=== PATIENT | female | born 1940 | race Caucasian/White ===

== ENCOUNTER 2018-05-10 18:18 | Observation (INO) | payer OTHER, MEDICARE ==
[2018-05-10 18:24] VITALS: BMI 29.0
[2018-05-10] MEDS ORDERED: SODIUM CHLORIDE 0.9% 500 ML INFUS.BAG IV ONE (19:19)
[2018-05-10] MEDS ORDERED: ONDANSETRON 4 MG/2 ML VIAL IVPUSH ONE (19:19)
--- NOTE | 2018-05-10 19:27 | PDOC ---
History of Present Illness - General Chief Complaint: Vomiting/Diarrhea Stated Complaint: Nausea/Vomiting Time Seen by Provider: 05/10/18 18:56 - History of Present Illness Initial Comments: 77 yo f w a pmh of HTN, HLD, Hypothyroidism presents to the [facility] ER from an urgent care center with multiple episodes of vomiting and diarrhea. She was last well when she went to bed last night, but she awoke this morning at 4 am in [place] with extreme feelings of nausea, went straight to the bathroom and started vomiting and having diarrhea at the same time. She reports the vomitus was projectile and NBNB. She also reports that the diarrhea was watery in consistency and there was no blood in it. She took a zofran pill at 4 am but it did not help her nausea. She then went to urgent care who also gave her oral zofran but it did not help her nausea. She was sent to the ER from urgent care because in addition to her vomiting and diarrhea she had EKG abnormalities and was sent to see if troponin was elevated in her blood. Here in the ER she denies any chest pain, shortness of breath or difficulty breathing but endorses significant nausea and a mild headache which was gradual in onset. She reports decreased oral intake and general malaise and weakness. She denies any abdominal pain, back pain, urinary or bowel complaints. Denies any blurry vision. PCP: Tanna Ernandez Corporate Webmaster: Rodri aranda Allergies: NKA, NKDA Social Hx: Admits to minimal alcohol recreationally. Denies using cigarettes, or illicit drugs. Past History - Past Medical History Allergies/Adverse Reactions: Allergies Allergy/AdvReac Type Severity Reaction Status Date / Time No Known Allergies Allergy Verified 05/10/18 18:21 Home Medications: Ambulatory Orders Losartan Potassium 100 mg PO DAILY 06/26/14 Simvastatin [Zocor -] 40 mg PO HS 06/26/14 Levothyroxine [Synthroid -] 75 mg PO DAILY 06/27/14 Ondansetron [Zofran Odt -] 4 mg SL TID PRN #10 od.tablet 06/28/14 Hydrochlorothiazide 12.5 mg PO DAILY 05/10/18 Levothyroxine [Synthroid -] 50 mcg PO DAILY 05/10/18 Losartan Potassium 100 mg PO DAILY 05/10/18 Omeprazole 40 mg PO DAILY 05/10/18 Anemia: No Asthma: Yes (COUGHING) Cancer: No Cardiac Disorders: No CVA: No COPD: No CHF: No Dementia: No Diabetes: No GI Disorders: Yes Disorders: No HTN: Yes Hypercholesterolemia: Yes Liver Disease: No Seizures: No Thyroid Disease: Yes - Surgical History Abdominal Surgery: No Appendectomy: No Cardiac Surgery: No Cholecystectomy: No Lung Surgery: No Neurologic Surgery: No Orthopedic Surgery: No - Suicide/Smoking/Psychosocial Hx Smoking History: Never smoked Have you smoked in the past 12 months: No Information on smoking cessation initiated: No Hx Alcohol Use: No Drug/Substance Use Hx: No Substance Use Type: None Hx Substance Use Treatment: No Review of Systems - Review of Systems Comments:: CONSTITUTIONAL: Present: Generalized weakness, malaise, loss of appetite. Absent: fever, chills, diaphoresis HEENT: Absent: rhinorrhea, nasal congestion, throat pain, throat swelling, difficulty swallowing, mouth swelling, ear pain, eye pain, visual Changes CARDIOVASCULAR: Absent: chest pain, syncope, palpitations, irregular heart rate, lightheadedness , peripheral edema RESPIRATORY: Absent: cough, shortness of breath, dyspnea with exertion, orthopnea, wheezing, stridor, hemoptysis GASTROINTESTINAL: Present: Nausea, vomiting, diarrhea Absent: abdominal pain, abdominal distension, constipation, melena, hematochezia GENITOURINARY: Absent: dysuria, frequency, urgency, hesitancy, hematuria, flank pain, genital pain MUSCULOSKELETAL: Absent: myalgia, arthralgia, joint swelling SKIN: Absent: rash, itching, pallor HEMATOLOGIC/IMMUNOLOGIC: Absent: easy bleeding, easy bruising, lymphadenopathy, frequent infections ENDOCRINE: Absent: unexplained weight gain, unexplained weight loss, heat intolerance, cold intolerance NEUROLOGIC: Present: Headache Absent: focal weakness or paresthesias, dizziness, unsteady gait, seizure, mental status changes, bladder or bowel incontinence PSYCHIATRIC: Absent: anxiety, depression, suicidal or homicidal ideation, hallucinations *Physical Exam - Vital Signs Last Vital Signs Temp Pulse Resp BP Pulse Ox 97.8 F 83 18 131/75 97 05/10/18 18:21 05/10/18 18:21 05/10/18 18:21 05/10/18 18:21 05/10/18 18:21 Heart Score/ECG Review - Electrocardiogram EKG: Non specific repolarization disturbance - Age Age: >/= 65 - Risk Factors Risk Factors Heart Score: Yes Hx Hypercholesterolemia, Yes Hx Hypertension Based on the list above the patient has:: >/=3 risk factors or Hx atherosclerotic disease - ECG Intrepretation Rhythm: Regular Rhythm - [place]: Normal - QRS Increased Voltage: Precordial Leads - ST and T Non Specific ST-T Wave changes: Yes Prolonged Q-T Interval: No - ECG Impressions Normal ECG: No Non-specific ST Elevation: No Ischemic Changes: Yes Bradycardia: No ED Treatment Course - LABORATORY CBC & Chemistry Diagram: 05/10/18 20:00 05/10/18 20:00 - RADIOLOGY Radiology Studies Ordered: Category Date Time Status CHEST PA & LAT [RAD] Stat Radiology 05/10/18 19:19 Ordered Medical Decision Making - Medical Decision Making 77 yo f w a pmh of HTN, HLD, Hypothyroidism presents to the [facility] ER from an urgent care center with multiple episodes of vomiting and diarrhea and EKG abnormalities. DD includes but not limited to: ACS, gastroenteritis, food poisoning, pancreatitis Plan: Cbc, Cmp, Trop, Lipase, ua/uc, EKG, CXR, IVF-NS, Zofran, re-assess. EKG: Sinus rhythm, rate of 82, normal axis Shows inverted T waves in 1, AVL, v2,v3,v4,v5,v6. T wave flattening in 2. Possible [address] depression in leads 1, V3,V4. -Will try to find an old EKG to compare. - 1st trop negative. Cmp notable for mild hyponatremia at 132 and elevated BUN at 23 Lipase WNL UA WNL Called PCP who doesn't have an old EKG. Consulting her furniture crater to try and obtain an old EKG. Cannot get in touch with furniture crater. We will admit to Tele Obs. *DC/Admit/Observation/Transfer Diagnosis at time of Disposition: Vomiting, Diarrhea, Abnormal EKG - Discharge Dispostion Condition at time of disposition: Guarded Decision to Admit order: Yes - Referrals Referrals: Ana Carolina [Primary Care Provider] - - Patient Instructions - Post Discharge Activity
[2018-05-10] MEDS ORDERED: ONDANSETRON 4 MG/2 ML VIAL ONE (19:52)
[2018-05-10 20:10] LABS: BASO % 0.3 % (0-2.0); EOS % 0.9 % (0-4.5); HEMATOCRIT 42.5 % (32.4-45.2); HEMOGLOBIN 14.4 GM/dL (10.7-15.3); LYMPH % 7.2 % (8-40); MCH 29.6 pg (25.7-33.7); MCHC 33.9 g/dl (32.0-36.0); MEAN CELL VOLUME 87.1 fl (80-96); MEAN PLT VOLUME 8.7 fl (7.5-11.1); MONO % 3.9 % (3.8-10.2); NEUT % 87.7 % (42.8-82.8); PLATELET COUNT 275 K/MM3 (134-434); RBC 4.88 M/mm3 (3.60-5.2); RDW 13.2 % (11.6-15.6); WHITE BLOOD COUNT 9.4 K/mm3 (4.0-10.0)
--- NOTE | 2018-05-10 20:11 | PDOC ---
Attending Attestation - HPI HPI: 05/10/18 20:37 The patient is a 77 year old female with a significant PMH of hypertension, hyperlipidemia and hypothyroidism who presents to the emergency department with vomiting since earlier today. The patient reports that she woke up this morning at about 4 am with a sudden onset of vomiting. The patient reports associated diarrhea with her vomiting. She states that she experienced about 10 episodes of vomiting. The patient states that she went to urgent care by which they sent her to the ED for an abnormal EKG. The patient denies any other symptoms. She denies any abdominal pain , chest pain, fever, chills, nausea, constipation or urinary symptoms. She denies any shortness of breath, headache and dizziness. The patient denies any other complaints. Documentation prepared by Fay Pryor, acting as phlebotomist medical lab assistant for Radha Rankin MD. <Fay Pryor - Last Filed: 05/10/18 20:37> - Resident Resident Name: Adan Lisa - ED Attending Attestation I have performed the following: I have examined & evaluated the patient, The case was reviewed & discussed with the resident, I agree w/resident's findings & plan, Exceptions are as noted - Physicial Exam PE: GENERAL: Awake, alert, and fully oriented, in no acute distress HEAD: No signs of trauma EYES: PERRLA, EOMI, sclera anicteric, conjunctiva clear ENT: Auricles normal inspection, hearing grossly normal, nares patent, oropharynx clear without exudates. Dry mucosa NECK: Normal ROM, supple, no lymphadenopathy, JVD, or masses LUNGS: Breath sounds equal, clear to auscultation bilaterally. No wheezes, and no crackles HEART: Regular rate and rhythm, normal S1 and S2, no murmurs, rubs or gallops ABDOMEN: Soft, +diffuse mild tenderness, hyperactive bowel sounds. No guarding , no rebound. No masses EXTREMITIES: Normal range of motion, no edema. No clubbing or cyanosis. No cords, erythema, or tenderness NEUROLOGICAL: Cranial nerves II through XII grossly intact. Normal speech, normal gait SKIN: Warm, Dry, normal turgor, no rashes or lesions noted. - Medical Decision Making Pt with multiple episodes of vomiting and diarrhea. No known sick contacts. Found to have poss ST dep in precordial leads on urgent care EKG, sent for evaluation. ED EKG compared with prior in [place] (from 2000), shows new ST dep in precordial leads and T wave inv in I. Will obtain labs including CBC, CMP, lipase, and troponin. Will d/w PMD. <Radha Rankin - Last Filed: 05/10/18 20:42>
[2018-05-10 20:43] LABS: ALBUMIN 3.6 g/dl (3.4-5.0); ALK PHOS 64 U/L (45-117); ANION GAP -3 MMOL/L (8-16); BILIRUBIN,TOTAL 0.8 mg/dL (0.2-1); BLOOD UREA NITROGEN 23 mg/dL (7-18); CALCIUM 9.8 mg/dL (8.5-10.1); CHLORIDE 111 mmol/L (98-107); CO2 23 mmol/L (21-32); GLUCOSE,RANDOM 91 mg/dL (74-106); POTASSIUM 3.5 mmol/L (3.5-5.1); SGOT/AST 16 U/L (15-37); SGPT/ALT 29 U/L (13-61); SODIUM 132 mmol/L (136-145); TOT PROT 7.4 g/dl (6.4-8.2)
[2018-05-10 21:04] LABS: URINE APPEARANCE CLEAR; URINE BILIRUBIN NEGATIVE (<2.0 mg/dL); URINE COLOR LTYELLOW; URINE GLUCOSE (UA) NEGATIVE (NEGATIVE); URINE KETONE NEGATIVE (NEGATIVE); URINE LEUK ESTERASE NEGATIVE (NEGATIVE); URINE NITRITE NEGATIVE (NEGATIVE); URINE PROTEIN NEGATIVE (NEGATIVE); URINE UROBILINOGEN NEGATIVE mg/dL (0.2-1.0)
--- NOTE | 2018-05-10 22:49 | PN ---
Teaching Attending Note Name of Resident: Anne-Marie Rajput ATTENDING PHYSICIAN STATEMENT I saw and evaluated the patient. I reviewed the resident's note and discussed the case with the resident. I agree with the resident's findings and plan as documented. SUBJECTIVE: Patient is a 77 year old woman with PMH of hypertension, hyperlipidemia and hypothyroidism who presents to the ER with vomiting since earlier today. The patient reports that she woke up this morning at about 4 am with a sudden onset of vomiting. The patient reports associated diarrhea with her vomiting. She states that she experienced about 10 episodes of vomiting. The patient states that she went to urgent care by which they sent her to the ER for an abnormal EKG. The patient denies any other symptoms. She denies any abdominal pain , chest pain, fever, chills, nausea, constipation or urinary symptoms. She denies any shortness of breath, headache and dizziness. The patient denies any other complaints. OBJECTIVE: Alert Vital Signs Period Temp Pulse Resp BP Sys/Ugarte Pulse Ox Last 24 Hr 97.8 F 83 18 131/75 97 HEENT: No Jaundice, eye redness or discharge, PERRLA, EOMI. Normocephalic, atraumatic. External ears are normal and hearing is grossly intact. No nasal discharge. Neck: Supple, nontender. No palpable adenopathy or thyromegaly. No JVD Chest: Good effort. Clear to auscultation and percussion. Heart: Regular. No S3, rub or murmur Abdomen: Not distended, soft, mild diffuse tenderness and no HSM. No rebound or guarding. Normoactive bowel sounds. Ext: Peripheral pulses intact. No leg edema. Skin: Warm and dry. No petechiae, rash or ecchymosis. Neuro: Alert. Oriented x3. CN 2-12 grossly intact. Sensation grossly intact in all four extremities and DTR are symmetric. Home Medications Medication Instructions Recorded Losartan Potassium 100 mg PO DAILY 06/26/14 Simvastatin [Zocor -] 40 mg PO HS 06/26/14 Levothyroxine [Synthroid -] 75 mg PO DAILY 06/27/14 Ondansetron [Zofran Odt -] 4 mg SL TID PRN #10 od.tablet 06/28/14 Hydrochlorothiazide 12.5 mg PO DAILY 05/10/18 Levothyroxine [Synthroid -] 50 mcg PO DAILY 05/10/18 Losartan Potassium 100 mg PO DAILY 05/10/18 Omeprazole 40 mg PO DAILY 05/10/18 Abnormal Lab Results 05/10/18 05/10/18 20:00 20:00 Absolute Neuts (auto) 8.2 H Neutrophils % 87.7 H D Lymphocytes % 7.2 L D Sodium 132 L Chloride 111 H Anion Gap -3 L BUN 23 H ASSESSMENT AND PLAN: 1. Gastroenteritis - Patient ate at a wedding buffet dinner yesterday, but does not know if any other guests are sick. Findings suggest food poisoning. Feeling better already and asking for "toast". Will get CT abd/pelvis; give IV NS and zofran. Has fixed t wave inversions on EKG which are old and troponin is negative. Will monitor on telemetry and get another troponin to rule out ACS. Check Mg and Phosphate levels. If negative anion gap persists, will investigate. 2. Hyponatremia - Likely due to vomiting and nausea. Getting IV NS at 75 ml/ hour. Repeat BMP in 6 hours. 3. DVT prophylaxis - Lovenox 40 mg SQ q 24 hours. 4. Advance directives - Full code
[2018-05-10] MEDS ORDERED: ONDANSETRON 4 MG/2 ML VIAL IVPB PRN (22:57)
[2018-05-10] MEDS ORDERED: SODIUM CHLORIDE 1,000 ML IV SCH (23:00)
--- NOTE | 2018-05-10 23:07 | HP ---
CHIEF COMPLAINT: nausea, vomiting and diarrhea PCP:Dr. Carolina HISTORY OF PRESENT ILLNESS: Patient is a 77 year old female with past medical history of HTN, HLD and hypothyroidism, presented with nausea, vomiting and diarrhea this morning. Patient came from a wedding [place] last night. At 3am today, patient woke up feeling nauseous and had multiple episodes of NBNB vomiting and nonbloody diarrhea. This lasted for 2 hours. It is unknown if the other guests had similar symptoms, but the was fine. Patient took zofran which provided minimal relief. She also reported headache this morning which resolved at noon. Patient remained weak, and was brought to urgent care where they found ST depression on precordial leads, and was advised to go to the ED. ER course was notable for: (1)Na 132 (2)EKG - t wave inversion, ?ST depression (3)Trop <0.02 (4)Zofran IV given Recent Travel:denies any recent travel PAST MEDICAL HISTORY: Hypertension Hyperlipidemia Hypothyroidism PAST SURGICAL HISTORY: None Social History: Smoking: denies Alcohol:occasional EtOH drink Drugs: denies illicit drug use Family History:non-contributory Allergies No Known Allergies Allergy (Verified 05/10/18 18:21) ENVIRONMENTAL ALLERGIES ONLY PER PT HOME MEDICATIONS: Home Medications Medication Instructions Recorded Losartan Potassium 100 mg PO DAILY 06/26/14 Simvastatin [Zocor -] 40 mg PO HS 06/26/14 Levothyroxine [Synthroid -] 75 mg PO DAILY 06/27/14 Ondansetron [Zofran Odt -] 4 mg SL TID PRN #10 od.tablet 06/28/14 Hydrochlorothiazide 12.5 mg PO DAILY 05/10/18 Levothyroxine [Synthroid -] 50 mcg PO DAILY 05/10/18 Losartan Potassium 100 mg PO DAILY 05/10/18 Omeprazole 40 mg PO DAILY 05/10/18 REVIEW OF SYSTEMS CONSTITUTIONAL: Absent: fever, chills, diaphoresis, generalized weakness, malaise, loss of appetite, weight change HEENT: Absent: rhinorrhea, nasal congestion, throat pain, throat swelling, difficulty swallowing, mouth swelling, ear pain, eye pain, visual changes CARDIOVASCULAR: Absent: chest pain, syncope, palpitations, irregular heart rate, lightheadedness , peripheral edema RESPIRATORY: Absent: cough, shortness of breath, dyspnea with exertion, orthopnea, wheezing, stridor, hemoptysis GASTROINTESTINAL: Absent: abdominal pain, abdominal distension, nausea, vomiting, diarrhea, constipation, melena, hematochezia GENITOURINARY: Absent: dysuria, frequency, urgency, hesitancy, hematuria, flank pain, genital pain MUSCULOSKELETAL: Absent: myalgia, arthralgia, joint swelling, back pain, neck pain SKIN: Absent: rash, itching, pallor HEMATOLOGIC/IMMUNOLOGIC: Absent: easy bleeding, easy bruising, lymphadenopathy, frequent infections ENDOCRINE: Absent: unexplained weight gain, unexplained weight loss, heat intolerance, cold intolerance NEUROLOGIC: Absent: headache, focal weakness or paresthesias, dizziness, unsteady gait, seizure, mental status changes, bladder or bowel incontinence PSYCHIATRIC: Absent: anxiety, depression, suicidal or homicidal ideation, hallucinations. PHYSICAL EXAMINATION Vital Signs - 24 hr 05/10/18 18:21 Temperature 97.8 F Pulse Rate 83 Respiratory 18 Rate Blood Pressure 131/75 O2 Sat by Pulse 97 Oximetry (%) GENERAL: Awake, alert, and fully oriented, in no acute distress. HEAD: Normal with no signs of trauma. EYES: PERRLA, EOMI, sclera anicteric, conjunctiva clear. EARS, NOSE, THROAT: Ears normal, nares patent, oropharynx clear without exudates. Moist mucous membranes. NECK: Normal range of motion, supple without lymphadenopathy, JVD, or masses. LUNGS: Breath sounds equal, clear to auscultation bilaterally. HEART: Regular rate and rhythm, normal S1 and S2 without murmur, rub or gallop. ABDOMEN: Soft, nontender, not distended, normoactive bowel sounds. MUSCULOSKELETAL: Normal range of motion at all joints. No bony deformities or tenderness. No CVA tenderness. UPPER EXTREMITIES: 2+ pulses, warm, well-perfused. No cyanosis. No clubbing. No peripheral edema. LOWER EXTREMITIES: 2+ pulses, warm, well-perfused. No calf tenderness. No peripheral edema. NEUROLOGICAL: Cranial nerves II-XII intact. Normal speech. Normal gait. Motor 5 /5, sensation intact. PSYCHIATRIC: Cooperative. Good eye contact. Appropriate mood and affect. SKIN: Warm, dry, normal turgor, no rashes or lesions noted, normal capillary refill. Laboratory Results - last 24 hr 05/10/18 05/10/18 05/10/18 20:00 20:00 20:00 WBC 9.4 RBC 4.88 Hgb 14.4 Hct 42.5 MCV 87.1 MCH 29.6 MCHC 33.9 RDW 13.2 Plt Count 275 D MPV 8.7 Absolute Neuts (auto) 8.2 H Neutrophils % 87.7 H D Lymphocytes % 7.2 L D Monocytes % 3.9 Eosinophils % 0.9 D Basophils % 0.3 Nucleated RBC % 0 Sodium 132 L Potassium 3.5 Chloride 111 H Carbon Dioxide 23 Anion Gap -3 L BUN 23 H Creatinine 1.0 Creat Clearance w eGFR 54.05 Random Glucose 91 Calcium 9.8 Total Bilirubin 0.8 AST 16 ALT 29 Alkaline Phosphatase 64 Troponin I < 0.02 Total Protein 7.4 Albumin 3.6 Lipase Urine Color Urine Appearance Urine pH Ur Specific [place] Urine Protein Urine Glucose (UA) Urine Ketones Urine Blood Urine Nitrite Urine Bilirubin Urine Urobilinogen Ur Leukocyte Esterase 05/10/18 05/10/18 20:40 20:50 WBC RBC Hgb Hct MCV MCH MCHC RDW Plt Count MPV Absolute Neuts (auto) Neutrophils % Lymphocytes % Monocytes % Eosinophils % Basophils % Nucleated RBC % Sodium Potassium Chloride Carbon Dioxide Anion Gap BUN Creatinine Creat Clearance w eGFR Random Glucose Calcium Total Bilirubin AST ALT Alkaline Phosphatase Troponin I Total Protein Albumin Lipase 145 Urine Color Ltyellow Urine Appearance Clear Urine pH 5.0 Ur Specific [place] 1.016 Urine Protein Negative Urine Glucose (UA) Negative Urine Ketones Negative Urine Blood Negative Urine Nitrite Negative Urine Bilirubin Negative Urine Urobilinogen Negative Ur Leukocyte Esterase Negative ASSESSMENT/PLAN: Patient is a 77 year old female with past medical history of HTN, HLD and hypothyroidism, presented with nausea, vomiting and diarrhea this morning. #Vomiting and Diarrhea: likely 2/2 acute gastroenteritis -No more episodes of vomiting and diarrhea all day, since 5am this morning. -Patient reported to be feeling better already, was able to tolerate crackers and water and is asking for toast -CT abdomen and pelvis ordered -IV NS @75ml/hr -will monitor electrolytes #T wave inversions, ?new onset ST depression: r/o ACS -T wave inversions seen in old EKG (2000). Will have to compare with more recent EKGs -Patient routinely follows-up with market intelligence consultant and have work-ups done -First trop negative. Will trend troponin -Echocardiogram ordered. #Hypertension -Continue Losartan 100mg daily #Hyperlipidemia -Continue Simvastatin 40 mg PO HS #Hypothyroidism -Continue synthroid 75mcg daily #FEN -IV NS @75ml/hr -Hyponatremia, routine bmp monitoring -Sodium restricted diet #Prophylaxis -Heparin 5000 units sq tid #Disposition -admit to tele obs Visit type - Emergency Visit Emergency Visit: Yes ED Registration Date: 05/10/18 Care time: The patient presented to the Emergency Department on the above date and was hospitalized for further evaluation of their emergent condition. - New Patient This patient is new to me today: Yes Date on this admission: 05/11/18 - Critical Care Critical Care patient: No
[2018-05-11] MEDS ORDERED: ONDANSETRON 4 MG/2 ML VIAL IVPUSH ONE (01:09)
[2018-05-11] MEDS ORDERED: IBUPROFEN 600 MG TABLET (FP) PO ONE ×2 (01:09→01:50)
[2018-05-11] MEDS ORDERED: SODIUM CHLORIDE 0.9% 500 ML INFUS.BAG IV ONE (01:48)
[2018-05-11] MEDS ORDERED: ONDANSETRON 4 MG/2 ML VIAL ONE (01:49)
[2018-05-11] MEDS ORDERED: HEPARIN NA (PORCINE) 5,000 UNITS/ML 1ML VIAL ONE (05:57)
[2018-05-11] MEDS ORDERED: HEPARIN NA (PORCINE) 5,000 UNITS/ML 1ML VIAL SQ SCH (06:00)
[2018-05-11] MEDS ORDERED: POTASSIUM CHLORIDE ORAL LIQUID 20 MEQ/15 ML PO ONE (07:49)
[2018-05-11 07:57] LABS: BASO % 0.2 % (0-2.0); EOS % 1.5 % (0-4.5); HEMATOCRIT 39.7 % (32.4-45.2); HEMOGLOBIN 13.2 GM/dL (10.7-15.3); LYMPH % 17.9 % (8-40); MCH 29.1 pg (25.7-33.7); MCHC 33.2 g/dl (32.0-36.0); MEAN CELL VOLUME 87.4 fl (80-96); MEAN PLT VOLUME 9.1 fl (7.5-11.1); MONO % 7.6 % (3.8-10.2); NEUT % 72.8 % (42.8-82.8); PLATELET COUNT 238 K/MM3 (134-434); RBC 4.54 M/mm3 (3.60-5.2); RDW 13.5 % (11.6-15.6); WHITE BLOOD COUNT 6.7 K/mm3 (4.0-10.0)
[2018-05-11] MEDS ORDERED: POTASSIUM CHLORIDE TABS 20 MEQ TABLET.ER (FP) PO ONE (09:01)
[2018-05-11 09:04] LABS: ALBUMIN 3.2 g/dl (3.4-5.0); ALK PHOS 56 U/L (45-117); ANION GAP 7 MMOL/L (8-16); BILIRUBIN,TOTAL 0.5 mg/dL (0.2-1); BLOOD UREA NITROGEN 16 mg/dL (7-18); CALCIUM 8.5 mg/dL (8.5-10.1); CHLORIDE 113 mmol/L (98-107); CO2 24 mmol/L (21-32); GLUCOSE,RANDOM 86 mg/dL (74-106); PHOSPHOROUS 2.7 mg/dL (2.5-4.9); POTASSIUM 3.9 mmol/L (3.5-5.1); SGOT/AST 18 U/L (15-37); SGPT/ALT 25 U/L (13-61); SODIUM 144 mmol/L (136-145); TOT PROT 6.6 g/dl (6.4-8.2)
[2018-05-11] MEDS ORDERED: LEVOTHYROXINE NA 25 MCG TABLET (FP) ONE ×2 (09:25→10:12)
[2018-05-11] MEDS ORDERED: LEVOTHYROXINE NA 50 MCG TABLET (FP) PO ONE (09:28)
[2018-05-11 09:32] VITALS: BP 131/78; PULSE 78; TEMP 97.8
--- NOTE | 2018-05-11 09:50 | DS ---
Physical Exam: SUBJECTIVE: Patient seen and examined, no further nausea, vomiting or diarrhea. Tolerated breakfast well. Ambulating in the ED with no concerns. OBJECTIVE: Vital Signs Period Temp Pulse Resp BP Sys/Ugarte Pulse Ox Last 24 Hr 97.5 F-97.8 F 72-83 16-18 131-138/68-78 96-100 PHYSICAL EXAM GENERAL: The patient is awake, alert, and fully oriented, in no acute distress. HEAD: Normal with no signs of trauma. EYES: PERRL, extraocular movements intact, sclera anicteric, conjunctiva clear. ENT: Ears normal, nares patent, oropharynx clear without exudates, moist mucous membranes. NECK: Trachea midline, full range of motion, supple. LUNGS: CTAB, no rales or wheezing HEART: Regular rate and rhythm, S1, S2 ABDOMEN: Soft, nontender, nondistended, normoactive bowel sounds, no guarding, no rebound, no hepatosplenomegaly, no masses. EXTREMITIES: 2+ pulses, warm, well-perfused, no edema. NEUROLOGICAL: Cranial nerves II through XII grossly intact. Normal speech, gait normal PSYCH: Normal mood, normal affect. SKIN: Warm, dry, normal turgor, no rashes or lesions noted. LABS Laboratory Results - last 24 hr 05/10/18 05/10/18 05/10/18 20:00 20:00 20:00 WBC 9.4 RBC 4.88 Hgb 14.4 Hct 42.5 MCV 87.1 MCH 29.6 MCHC 33.9 RDW 13.2 Plt Count 275 D MPV 8.7 Absolute Neuts (auto) 8.2 H Neutrophils % 87.7 H D Lymphocytes % 7.2 L D Monocytes % 3.9 Eosinophils % 0.9 D Basophils % 0.3 Nucleated RBC % 0 Sodium 132 L Potassium 3.5 Chloride 111 H Carbon Dioxide 23 Anion Gap -3 L BUN 23 H Creatinine 1.0 Creat Clearance w eGFR 54.05 Random Glucose 91 Calcium 9.8 Phosphorus Magnesium Total Bilirubin 0.8 AST 16 ALT 29 Alkaline Phosphatase 64 Creatine Kinase Troponin I < 0.02 Total Protein 7.4 Albumin 3.6 Lipase Urine Color Urine Appearance Urine pH Ur Specific [place] Urine Protein Urine Glucose (UA) Urine Ketones Urine Blood Urine Nitrite Urine Bilirubin Urine Urobilinogen Ur Leukocyte Esterase 05/10/18 05/10/18 05/11/18 20:40 20:50 02:05 WBC RBC Hgb Hct MCV MCH MCHC RDW Plt Count MPV Absolute Neuts (auto) Neutrophils % Lymphocytes % Monocytes % Eosinophils % Basophils % Nucleated RBC % Sodium Potassium Chloride Carbon Dioxide Anion Gap BUN Creatinine Creat Clearance w eGFR Random Glucose Calcium Phosphorus Magnesium Total Bilirubin AST ALT Alkaline Phosphatase Creatine Kinase 110 Troponin I < 0.02 Total Protein Albumin Lipase 145 Urine Color Ltyellow Urine Appearance Clear Urine pH 5.0 Ur Specific [place] 1.016 Urine Protein Negative Urine Glucose (UA) Negative Urine Ketones Negative Urine Blood Negative Urine Nitrite Negative Urine Bilirubin Negative Urine Urobilinogen Negative Ur Leukocyte Esterase Negative 05/11/18 05/11/18 07:35 07:35 WBC 6.7 RBC 4.54 Hgb 13.2 Hct 39.7 MCV 87.4 MCH 29.1 MCHC 33.2 RDW 13.5 Plt Count 238 MPV 9.1 Absolute Neuts (auto) 4.8 Neutrophils % 72.8 Lymphocytes % 17.9 D Monocytes % 7.6 D Eosinophils % 1.5 Basophils % 0.2 Nucleated RBC % 0 Sodium 144 Potassium 3.9 Chloride 113 H Carbon Dioxide 24 Anion Gap 7 L BUN 16 Creatinine 1.0 Creat Clearance w eGFR 54.05 Random Glucose 86 Calcium 8.5 Phosphorus 2.7 Magnesium 2.0 Total Bilirubin 0.5 AST 18 ALT 25 Alkaline Phosphatase 56 Creatine Kinase 102 Troponin I 0.02 Total Protein 6.6 Albumin 3.2 L Lipase Urine Color Urine Appearance Urine pH Ur Specific [place] Urine Protein Urine Glucose (UA) Urine Ketones Urine Blood Urine Nitrite Urine Bilirubin Urine Urobilinogen Ur Leukocyte Esterase CT A/p prelim read with no acute findings HOSPITAL COURSE: Date of Admission:05/10/18 Date of Discharge: 05/11/18 Minutes to complete discharge: 35 Discharge Summary Reason For Visit: Nausea/Vomiting/ABNORMAL ELECTROCARD Current Active Problems Abnormal EKG (Acute) Diarrhea (Acute) Vomiting (Acute) Hospital Course: Patient received IV hydration and potassium supplementation with resolution of her electrolytes. Her symptoms resolved and she was tolerating diet well. CT A/ P prelim was negative for acute concerns. She had repeat EKG that was unchanged. Her troponins were negative. Her EKGs from 2013 and mar 2014 were reviewed and unchanged from the current one. She had no chest pain or new concerns. She is advised outpatient follow up with Dr. Conteh and BMP monitoring with her PCP. She is currently asymptomatic, ambulating in hallway, tolerating diet well and stable for discharge. Condition: Good - Instructions Diet, Activity, Other Instructions: You were admitted with symptoms suggestive of food poisoning. You had CT scan of your belly that was negative for any concerns Your blood work suggested borderline low potassium and dehydration that resolved with medication and fluids. You had EKG that was normal, but unchanged from mar 2014 and may 2014. You can follow up with Dr. Conteh in 1-2 weeks to discuss further testing including echo and stress test. Follow up with Dr. Carolina in 1 week Recommend blood work to check your kidneys and potassium with your doctor in 1 week. Continue all your home medications as before Call 911 or come to ED if any new nausea, vomiting, belly pain, or new concerns noted. Referrals: Ana Carolina [Primary Care Provider] - 1 Week Khai Conteh MD [Staff Physician] - 1 Week Disposition: HOME - Home Medications Comprehensive Discharge Medication List: Ambulatory Orders Simvastatin [Zocor -] 40 mg PO HS 06/26/14 Levothyroxine [Synthroid -] 75 mg PO MOTUWETHFR 06/27/14 Ondansetron [Zofran Odt -] 4 mg SL TID PRN #10 od.tablet 06/28/14 Hydrochlorothiazide 12.5 mg PO DAILY 05/10/18 Levothyroxine [Synthroid -] 50 mcg PO SUSA 05/10/18 Losartan Potassium 100 mg PO DAILY 05/10/18 Omeprazole 40 mg PO DAILY 05/10/18 This patient is new to me today: Yes Date on this admission: 05/11/18 Emergency Visit: Yes ED Registration Date: 05/10/18 Care time: The patient presented to the Emergency Department on the above date and was hospitalized for further evaluation of their emergent condition. Critical Care patient: No - Discharge Referral Referred to [facility] No
[2018-05-11] MEDS ORDERED: LEVOTHYROXINE NA 25 MCG TABLET (FP) PO ONE (10:08)
--- NOTE | 2018-05-11 10:51 | EKG ---
Test Reason : Blood Pressure : / mmHG Vent. Rate : 082 BPM Atrial Rate : 082 BPM P-R Int : 134 ms QRS Dur : 082 ms QT Int : 364 ms P-R-T Axes : 071 073 122 degrees QTc Int : 425 ms NORMAL SINUS RHYTHM ABNORMAL ECG WHEN COMPARED WITH ECG OF 26-JUN-2014 23:15, INVERTED T WAVES HAVE REPLACED NONSPECIFIC T WAVE ABNORMALITY IN LATERAL LEADS Confirmed by KRYSTIN SANDERS MD ([id number]) on 05/11/2018 10:51:06 AM Referred By: Confirmed By:KRYSTIN SANDERS MD
--- NOTE | 2018-05-12 10:31 | EKG ---
Test Reason : Blood Pressure : / mmHG Vent. Rate : 071 BPM Atrial Rate : 071 BPM P-R Int : 134 ms QRS Dur : 084 ms QT Int : 408 ms P-R-T Axes : 047 019 128 degrees QTc Int : 443 ms NORMAL SINUS RHYTHM POSSIBLE INFERIOR INFARCT , AGE UNDETERMINED T WAVE ABNORMALITY, CONSIDER ANTEROLATERAL ISCHEMIA ABNORMAL ECG WHEN COMPARED WITH ECG OF 10-MAY-2018 18:19, NO SIGNIFICANT CHANGE WAS FOUND Confirmed by AURA HARMAN, RANGEL ([id number]) on 05/12/2018 10:31:12 AM Referred By: Confirmed By:RANGEL CHAVARRIA MD
== END 2018-05-11 10:58 | disposition home or self-care (01) ==
LOC: JER 18:18 → JERBED 21:50 → INTOOBSV 21:50 → UNDOADMOB 21:50 → JERBED 22:57
PROVIDERS: ADMIT Internal Medicine; ATTEND Hospitalist
PROC: 3E033GC Introduction of Other Therapeutic Substance into Peripheral Vein, Percutaneous Approach (ICD-10-PCS; principal; 2018-05-10)
PROC: 3E0337Z Introduction of Electrolytic and Water Balance Substance into Peripheral Vein, Percutaneous Approach (ICD-10-PCS; 2018-05-10)
PROC: 3E013GC Introduction of Other Therapeutic Substance into Subcutaneous Tissue, Percutaneous Approach (ICD-10-PCS; 2018-05-10)
DX: R11.2 Nausea with vomiting, unspecified (principal); R19.7 Diarrhea, unspecified; R94.31 Abnormal electrocardiogram [ECG] [EKG]; K52.9 Noninfective gastroenteritis and colitis, unspecified; E87.1 Hypo-osmolality and hyponatremia; I10 Essential (primary) hypertension; E78.5 Hyperlipidemia, unspecified; E03.9 Hypothyroidism, unspecified
CPT/HCPCS: 36415; 71046-TC-FY; 74176-TC; 80053; 81003; 82550; 83690; 83735; 84100; 84484; 85025; 87086; 93005; 93010; 96372; 96374; 96376; 99284-25; G0378; J1644; J7030

== ENCOUNTER 2020-04-08 18:48 | Emergency (ER) | payer OTHER, MEDICARE ==
[2020-04-08 19:20] VITALS: TEMP 97.7; BMI 30.1
--- NOTE | 2020-04-08 20:11 | PDOC ---
History of Present Illness - General Chief Complaint: Syncope/Near Syncope Stated Complaint: Blood Pressure Problem Time Seen by Provider: 04/08/20 19:34 - History of Present Illness Initial Comments: HPI 79 yo F with PMH of HTN, HLD, and hypothyroidism presenting with a possible episode of syncope/near syncope. Pt reports that preceding her event, she started taking gabapentin for the first time - she took a dose of 300 mg this morning. After taking the gabapentin, the patient reported that she was feeling increasingly lethargic during the day. She was at her hvac controls technician's office and was increasingly lethargic there as well - noted to be drowsy and falling asleep. Pt reports while at the office she had a sudden urge to urinate which "woke me up." Subsequently, she became nauseous and reports that she felt "faint" and started experiencing diaphoresis. Pt is unsure if she experienced syncope or not. Of note, pt and her daughter that this has happened multiple times to her in the past - all with association of needing to use the restroom. During those times she was told that she had a vasovagal episode. Pt also complains of chronic musculoskeletal pain and neck stiffness that she is being evaluated for polymyalgia rheumatica by her hvac controls technician Dr. Maverick Barber; he prescribed her the gabapentin. She also follows with a pain specialist. Pt denies associated palpitations, fevers, chills, chest pain, abdominal pain, SOB, vomiting, diarrhea, constipation, headache, numbness/tingling, acute changes in strength/sensation, confusion, or changes in urination. Denies fall or head trauma as well. PMHX: as in HPI + also history of spinal stenosis; follows with pain medicine doctors regarding chronic pain as well PSHX: knee replacement in the last few years Allergies: nkda Tob: denies Etoh: occasional Rec drugs: denies PCP: Dr. Ana NEWELL GENERAL/CONSTITUTIONAL: No fever or chills. + chronic generalized weakness in extremities. diaphoresis during event but no longer. HEAD, EYES, EARS, NOSE AND THROAT: No change in vision. No ear pain or discharge. No sore throat. CARDIOVASCULAR: No chest pain or shortness of breath RESPIRATORY: No cough, wheezing, or hemoptysis. GASTROINTESTINAL: No current nausea, vomiting, diarrhea or constipation. GENITOURINARY: No dysuria, frequency, or change in urination. MUSCULOSKELETAL: + diffuse joint, muscle, back, and neck pain (worse in the neck; with neck stiffness) - chronic issues being evaluated by her outpatient specialists SKIN: No rash NEUROLOGIC: No headache, vertigo, or change in strength/sensation. + possible syncope/near-syncope ENDOCRINE: No increased thirst. No abnormal weight change HEMATOLOGIC/LYMPHATIC: No anemia, easy bleeding, or history of blood clots. ALLERGIC/IMMUNOLOGIC: No hives or skin allergy. PE VS - orthotatics negative GENERAL: Awake, alert, and fully oriented, in no acute distress. Pt still appears mildly lethargic, although communicating and participating in exam well. HEAD: No signs of trauma, normocephalic, atraumatic EYES: PERRLA, EOMI, sclera anicteric, conjunctiva clear ENT: Auricles normal inspection, hearing grossly normal, nares patent, oropharynx clear without exudates. Moist mucosa NECK: ROM restricted 2/2 to pain (chronic), supple, no lymphadenopathy LUNGS: No distress, speaks full sentences, clear to auscultation bilaterally HEART: Regular rate and rhythm, normal S1 and S2, no murmurs, rubs or gallops, peripheral pulses normal and equal bilaterally. ABDOMEN: Soft, nontender, normoactive bowel sounds. No guarding, no rebound. No masses EXTREMITIES : Normal inspection, Normal range of motion, no edema. No clubbing or cyanosis. NEUROLOGICAL: Cranial nerves II through XII grossly intact. Normal speech, normal gait, no focal sensorimotor deficits SKIN: Warm, Dry, normal turgor, no rashes or lesions noted. 04/08/20 20:56 Past History - Medical History Allergies/Adverse Reactions: Allergies Allergy/AdvReac Type Severity Reaction Status Date / Time No Known Allergies Allergy Verified 04/08/20 19:20 Home Medications: Ambulatory Orders Simvastatin [Zocor -] 40 mg PO HS 06/26/14 Levothyroxine [Synthroid -] 75 mg PO SUSA 06/27/14 Hydrochlorothiazide 12.5 mg PO DAILY 05/10/18 Levothyroxine [Synthroid -] 50 mcg PO MOTUWETHFR 05/10/18 Losartan Potassium 100 mg PO DAILY 05/10/18 Omeprazole 40 mg PO DAILY 05/10/18 Gabapentin 300 mg PO DAILY 09/11/20 Gabapentin 100 mg PO TID 21 Days #42 capsule 04/09/20 Anemia: No Asthma: Yes (COUGHING) Cancer: No Cardiac Disorders: No CVA: No COPD: No CHF: No Dementia: No Diabetes: No GI Disorders: Yes Disorders: No HTN: Yes Hypercholesterolemia: Yes Liver Disease: No Seizures: No Thyroid Disease: Yes - Surgical History Abdominal Surgery: No Appendectomy: No Cardiac Surgery: No Cholecystectomy: No Lung Surgery: No Neurologic Surgery: No Orthopedic Surgery: No - Reproductive History Is Patient Now?: No - Psycho-Social/Smoking History Smoking History: Never smoked Have you smoked in the past 12 months: No Information on smoking cessation initiated: No - Substance Abuse Hx (Audit-C & DAST Scrn) How often the patient has a drink containing alcohol: Never Score: In Men: 4 or > Positive; In Women: 3 or > Positive: 0 Screen Result (Pos requires Nsg. Audit-10AR): Negative *Physical Exam - Vital Signs Last Vital Signs Temp Pulse Resp BP Pulse Ox 97.7 F 76 18 127/62 98 04/08/20 18:55 04/08/20 18:55 04/08/20 18:55 04/08/20 18:55 04/08/20 18:55 ED Treatment Course - LABORATORY CBC & Chemistry Diagram: 04/08/20 21:36 04/08/20 21:36 - RADIOLOGY Radiology Studies Ordered: Category Date Time Status CERVICAL SPINE CT W/O CONTR [CT] Stat CT Scan 04/08/20 20:[address] WITHOUT CONTRAST [CT] Stat CT Scan 04/08/20 20:00 Ordered Medical Decision Making - Medical Decision Making MDM 79 yo F with PMH of HTN, HLD, and hypothyroidism presenting with a possible episode of syncope/near syncope. Started gabapentin 300 mg today. Experienced vasovagal type symptoms today. DDX including but not limited to: vasovagal syncope/near syncope, iatrogenic 2/2 to gabapentin, arrhythmia, orthostatic hypotension, other cardiogenic or neurogenic etiologies, less likely but will r/o any intracranial pathologies W/U: - CT head, CT c-spine - CBC, CMP, troponin - EKG TX: - pt finishing L of IVF started by EMS 04/08/20 20:51 mild leukocytosis; but pt with no fevers or infectious sequelae CT head/C-spine with no acute findings, as per Imaging service station cashier 04/09/20 00:08 EKG with NSR (67 bpm), with non specifc ST/T wave abnormalities that are not new - seen on previous EKG Patient stable for discharge. Informed of all lab and imaging results. Given follow up instructions and strict return precautions. Patient expressed understanding and agree to plan. 04/09/20 00:09 Discharge - Discharge Information Problems reviewed: Yes Clinical Impression/Diagnosis: Vasovagal episode, Vasovagal near syncope Condition: Good Disposition: HOME - Admission No - Additional Discharge Information Prescriptions: Gabapentin 100 mg PO TID 21 Days #42 capsule - Follow up/Referral Referrals: Ana Carolina [Primary Care Provider] - Maverick Barber MD [Staff Physician] - Inocente Galdamez [Non Staff, Medical] - - Patient Discharge Instructions Additional Instructions: You were seen in the ED for complaints of possible loss of consciousness/near loss of consciousness. In the ED you were evaluated with lab tests, CT scan of the head and cervical spine, and an EKG Your evaluation did not show any abnormal results. There does not appear to be an acute need for immediate hospitalization. You are advised to follow up with your Primary Care Physician within 1 week. You were given a referral to your [facility] Offsider Dr. Barber; follow up within 1 week regarding the change in your medications. Also given a referral to Dr. Inocente Galdamez regarding your chronic pain. You were given a prescription for gabapentin 100 mg three times a day (you can take it once a day for the first week, twice a day for the second week, and three times a day for the third week. Please return to the ED if you experience loss of consciousness, develop chest pain, SOB, or other concerning symptoms. - Post Discharge Activity
--- NOTE | 2020-04-08 20:49 | PDOC ---
Attending Attestation - Resident Resident Name: Khadra Barrios - ED Attending Attestation I have performed the following: I have examined & evaluated the patient, The case was reviewed & discussed with the resident, I agree w/resident's findings & plan - HPI HPI: 04/08/20 20:46 Pt comes with feeling that she is weak and nausea after taking 300mg gabapentin for the first time today. Her gear grinder gave her the medication and she speant the whole day at rheum's office. She came home and took the med and felt sleepy. [place] weak and had to help her to the 2nd floor. She felt like she had to have a BM and vomit at the same time. Vasovagal like symptoms. Family got nervous and brought her to the ER. Pt will be worked up She usually goes to a pain specialist who treats her with epidurals for her low back and leg pains Pt now complains of 2 weeks of neck and arm pains. Pt has had injections in her neck and scalp She takes tylenol for the pain Pt has currently left groin pain which is distinct from her sciatic pain on that side. Pt has HTN, high cholesterol and thyroid issues. - Physicial Exam PE: 04/08/20 20:52 Agree with resident exam Normal vitals no fever normal heart and lungs Pt has obese nontender abdomen moving all extremities. equal strength bilat. 4-/5 strength bilat - Medical Decision Making 04/08/20 20:53 Basic labs. cardiac enzymes, EKG, head CT and cspine ct if all is normal, pt will be sent home with 100mg tabs of gabapantin and she will work her way up on dosage 1 week at a time from 1 daily x 1week, to 1 BID x 1week , to 1TID then 300mg QHS Then 300mg BID as her gear grinder wants her to take it 04/09/20 04:42 Pt's labs normal, EKG normal, head CT and c spine CT normal Discharge - Discharge Information Problems reviewed: Yes Clinical Impression/Diagnosis: Vasovagal episode, Vasovagal near syncope Condition: Good Disposition: HOME - Additional Discharge Information Prescriptions: Gabapentin 100 mg PO TID 21 Days #42 capsule - Follow up/Referral Referrals: Ana Carolina [Primary Care Provider] - Maverick Barber MD [Staff Physician] - Inocente Galdamez [Non Staff, Medical] - - Patient Discharge Instructions Additional Instructions: You were seen in the ED for complaints of possible loss of consciousness/near loss of consciousness. In the ED you were evaluated with lab tests, CT scan of the head and cervical spine, and an EKG Your evaluation did not show any abnormal results. There does not appear to be an acute need for immediate hospitalization. You are advised to follow up with your Primary Care Physician within 1 week. You were given a referral to your Physician Compensation Analyst Dr. Barber; follow up within 1 week regarding the change in your medications. Also given a referral to Dr. Inocente Galdamez regarding your chronic pain. You were given a prescription for gabapentin 100 mg three times a day (you can take it once a day for the first week, twice a day for the second week, and three times a day for the third week. Please return to the ED if you experience loss of consciousness, develop chest pain, SOB, or other concerning symptoms. - Post Discharge Activity
[2020-04-08 21:41] VITALS: BP 148/81; PULSE 81
[2020-04-08 21:48] LABS: BASO % 0.3 % (0-2.0); EOS % 0.1 % (0-4.5); HEMATOCRIT 39.2 % (32.4-45.2); HEMOGLOBIN 13.1 GM/dL (10.7-15.3); LYMPH % 7.8 % (8-40); MCH 29.4 pg (25.7-33.7); MCHC 33.5 g/dl (32.0-36.0); MEAN CELL VOLUME 87.8 fl (80-96); MEAN PLT VOLUME 8.6 fl (7.5-11.1); MONO % 7.6 % (3.8-10.2); NEUT % 84.2 % (42.8-82.8); PLATELET COUNT 299 K/MM3 (134-434); RBC 4.47 M/mm3 (3.60-5.2); RDW 13.5 % (11.6-15.6); WHITE BLOOD COUNT 11.9 K/mm3 (4.0-10.0)
[2020-04-08 22:31] LABS: ALBUMIN 3.2 g/dl (3.4-5.0); ALK PHOS 71 U/L (45-117); ANION GAP 7 MMOL/L (8-16); BILIRUBIN,TOTAL 0.4 mg/dL (0.2-1); BLOOD UREA NITROGEN 21.8 mg/dL (7-18); CALCIUM 9.5 mg/dL (8.5-10.1); CHLORIDE 110 mmol/L (98-107); CO2 24 mmol/L (21-32); CREATININE 1.1 mg/dL (0.55-1.3); GLUCOSE,RANDOM 136 mg/dL (74-106); POTASSIUM 3.8 mmol/L (3.5-5.1); SGOT/AST 14 U/L (15-37); SGPT/ALT 21 U/L (13-61); SODIUM 140 mmol/L (136-145); TOT PROT 6.7 g/dl (6.4-8.2)
--- NOTE | 2020-04-11 11:32 | EKG ---
Test Reason : Blood Pressure : / mmHG Vent. Rate : 067 BPM Atrial Rate : 067 BPM P-R Int : 136 ms QRS Dur : 084 ms QT Int : 436 ms P-R-T Axes : 054 049 146 degrees QTc Int : 460 ms SINUS RHYTHM WITH PREMATURE SUPRAVENTRICULAR COMPLEXES ABNORMAL ECG WHEN COMPARED WITH ECG OF 27-APR-2019 12:34, PREMATURE SUPRAVENTRICULAR COMPLEXES ARE NOW PRESENT T WAVE VARIATION Confirmed by AURA HARMAN, RANGEL ([id number]) on 04/11/2020 11:32:01 AM Referred By: Confirmed By:RANGEL CHAVARRIA MD
== END 2020-04-09 00:50 | disposition home or self-care (01) ==
LOC: JER 18:48
DX: R55 Syncope and collapse (principal)
CPT/HCPCS: 36415; 70450-TC; 72125-TC; 72170-TC-FY; 80048; 80053; 84484; 85025; 85651; 86140; 93005; 93010; 99285-25

== ENCOUNTER 2021-06-07 14:01 | Observation (INO) | payer OTHER, MEDICARE ==
[2021-06-07 16:08] LABS: BASO % 1.3 % (0-2.0); EOS % 2.6 % (0-4.5); HEMATOCRIT 41.3 % (32.4-45.2); HEMOGLOBIN 13.7 GM/dL (10.7-15.3); LYMPH % 27.9 % (8-40); MCH 28.5 pg (25.7-33.7); MCHC 33.2 g/dl (32.0-36.0); MEAN CELL VOLUME 85.9 fl (80-96); MEAN PLT VOLUME 8.8 fl (7.5-11.1); MONO % 9.8 % (3.8-10.2); NEUT % 58.4 % (42.8-82.8); PLATELET COUNT 249 10^3/uL (134-434); RDW 13.3 % (11.6-15.6); WHITE BLOOD COUNT 6.7 K/mm3 (4.0-10.0)
[2021-06-07 16:21] LABS: URINE APPEARANCE CLEAR; URINE BILIRUBIN NEGATIVE (NEGATIVE); URINE COLOR YELLOW; URINE GLUCOSE (UA) NEGATIVE (NEGATIVE); URINE KETONE NEGATIVE (NEGATIVE); URINE LEUK ESTERASE NEGATIVE (NEGATIVE); URINE NITRITE NEGATIVE (NEGATIVE); URINE PROTEIN NEGATIVE (NEGATIVE); URINE UROBILINOGEN 0.2 mg/dL (0.2-1.0)
[2021-06-07 16:36] LABS: CHLORIDE 109 mmol/L (98-107); SODIUM 142 mmol/L (136-145)
[2021-06-07 16:40] LABS: ALBUMIN 3.6 g/dl (3.4-5.0); ANION GAP 8 MMOL/L (8-16); CALCIUM 10.1 mg/dL (8.5-10.1); CO2 26 mmol/L (21-32); GLUCOSE,RANDOM 84 mg/dL (74-106)
[2021-06-07 16:44] LABS: BILIRUBIN,TOTAL 0.4 mg/dL (0.2-1); CHOLESTEROL 154 mg/dL (50-200); CREATININE 1.2 mg/dL (0.55-1.3); SGOT/AST 20 U/L (15-37); SGPT/ALT 24 U/L (13-61); TRIGLYCERIDES 134 mg/dL (0-150)
[2021-06-07 16:45] LABS: ALK PHOS 88 U/L (45-117); TOT PROT 7.2 g/dl (6.4-8.2)
[2021-06-07 16:46] LABS: HDL CHOLESTEROL 49 mg/dL (40-60)
[2021-06-07 16:53] LABS: LDL CHOLESTEROL (ONLY SJRH) 88 mg/dL (5-100)
[2021-06-07] MEDS ORDERED: ACETAMINOPHEN 325 MG TABLET (FP) PO PRN (17:30)
[2021-06-07] MEDS ORDERED: LEVOTHYROXINE NA 50 MCG TABLET (FP) PO SCH (17:45)
[2021-06-07] MEDS ORDERED: HEPARIN NA (PORCINE) 5,000 UNITS/ML 1ML VIAL ONE (19:22)
[2021-06-07] MEDS ORDERED: LEVOTHYROXINE NA 25 MCG TABLET (FP) ONE (19:22)
[2021-06-07] MEDS: HEPARIN NA (PORCINE) 5,000 UNITS/ML 1ML VIAL SQ SCH (20:23)
[2021-06-07] MEDS ORDERED: ATORVASTATIN CA 40 MG TABLET (FP) ONE (21:53)
[2021-06-07] MEDS ORDERED: ATORVASTATIN CA 20 MG TABLET (FP) PO SCH (22:00)
[2021-06-07] MEDS: ATORVASTATIN CA 40 MG TABLET (FP) PO SCH (22:15)
[2021-06-08 01:56] VITALS: BMI 25.9
[2021-06-08] MEDS: HEPARIN NA (PORCINE) 5,000 UNITS/ML 1ML VIAL SQ SCH ×3 (02:05→21:30)
[2021-06-08 08:26] LABS: BASO % 1.3 % (0-2.0); EOS % 2.4 % (0-4.5); HEMATOCRIT 39.8 % (32.4-45.2); HEMOGLOBIN 13.4 GM/dL (10.7-15.3); LYMPH % 23.8 % (8-40); MCH 28.8 pg (25.7-33.7); MCHC 33.8 g/dl (32.0-36.0); MEAN CELL VOLUME 85.2 fl (80-96); MEAN PLT VOLUME 9.3 fl (7.5-11.1); MONO % 9.4 % (3.8-10.2); NEUT % 63.1 % (42.8-82.8); PLATELET COUNT 235 10^3/uL (134-434); RBC 4.67 M/mm3 (3.60-5.2); RDW 13.3 % (11.6-15.6); WHITE BLOOD COUNT 7.8 K/mm3 (4.0-10.0)
[2021-06-08 08:35] LABS: ALBUMIN 3.4 g/dl (3.4-5.0); BLOOD UREA NITROGEN 22.2 mg/dL (7-18); CALCIUM 9.6 mg/dL (8.5-10.1); MAGNESIUM 2.2 mg/dL (1.8-2.4)
[2021-06-08 08:38] LABS: CREATININE 1.2 mg/dL (0.55-1.3)
[2021-06-08 08:39] LABS: PHOSPHOROUS 3.1 mg/dL (2.5-4.9)
[2021-06-08 08:40] LABS: BILIRUBIN,TOTAL 0.6 mg/dL (0.2-1); TOT PROT 6.8 g/dl (6.4-8.2)
[2021-06-08] MEDS: ASPIRIN COATED 81 MG TABLET.EC PO SCH (09:16)
[2021-06-08] MEDS: LOSARTAN POTASSIUM 50 MG TABLET PO SCH (09:16)
[2021-06-08] MEDS ORDERED: metoPROLOL SUCCINATE 25 MG TAB.SR.24H (FP) PO SCH ×2 (10:00→12:54)
[2021-06-08] MEDS: LEVOTHYROXINE NA 50 MCG TABLET (FP) PO SCH (13:45)
[2021-06-08] MEDS: FUROSEMIDE 40 MG TABLET (FP) PO SCH (13:45)
[2021-06-08] MEDS: ATORVASTATIN CA 40 MG TABLET (FP) PO SCH (21:30)
[2021-06-08] MEDS ORDERED: MELATONIN 5 MG TABLETS PO PRN (21:43)
[2021-06-09] MEDS: HEPARIN NA (PORCINE) 5,000 UNITS/ML 1ML VIAL SQ SCH ×2 (06:45→13:50)
[2021-06-09] MEDS: LEVOTHYROXINE NA 50 MCG TABLET (FP) PO SCH (06:45)
[2021-06-09 08:21] LABS: ALBUMIN 3.4 g/dl (3.4-5.0)
[2021-06-09 08:22] LABS: CALCIUM 9.8 mg/dL (8.5-10.1)
[2021-06-09 08:23] LABS: BLOOD UREA NITROGEN 20.3 mg/dL (7-18); EOS % 1.7 % (0-4.5); HEMATOCRIT 39.5 % (32.4-45.2); HEMOGLOBIN 13.6 GM/dL (10.7-15.3); LYMPH % 25.3 % (8-40); MAGNESIUM 2.4 mg/dL (1.8-2.4); MCH 28.6 pg (25.7-33.7); MCHC 34.3 g/dl (32.0-36.0); MEAN CELL VOLUME 83.2 fl (80-96); MEAN PLT VOLUME 9.2 fl (7.5-11.1); MONO % 8.7 % (3.8-10.2); NEUT % 63.3 % (42.8-82.8); PLATELET COUNT 252 10^3/uL (134-434); RBC 4.75 M/mm3 (3.60-5.2); RDW 13.5 % (11.6-15.6); WHITE BLOOD COUNT 7.1 K/mm3 (4.0-10.0)
[2021-06-09 08:24] LABS: CREATININE 1.1 mg/dL (0.55-1.3)
[2021-06-09 08:25] LABS: BILIRUBIN,TOTAL 0.6 mg/dL (0.2-1)
[2021-06-09 08:26] LABS: PHOSPHOROUS 2.8 mg/dL (2.5-4.9)
[2021-06-09] MEDS: FUROSEMIDE 40 MG TABLET (FP) PO SCH (09:04)
[2021-06-09] MEDS: ASPIRIN COATED 81 MG TABLET.EC PO SCH (09:04)
[2021-06-09] MEDS: LOSARTAN POTASSIUM 50 MG TABLET PO SCH (09:04)
[2021-06-09 13:42] VITALS: BP 105/70; PULSE 70; TEMP 98.1
[2021-06-10] MEDS ORDERED: LEVOTHYROXINE NA 75 MCG TABLET (FP) PO SCH (07:00)
== END 2021-06-09 18:20 | disposition home or self-care (01) ==
LOC: JER 14:01 → JERBED 17:12 → J4S 06-08 01:35
PROVIDERS: ADMIT Internal Medicine; ATTEND Internal Medicine
PROC: 3E023GC Introduction of Other Therapeutic Substance into Muscle, Percutaneous Approach (ICD-10-PCS; principal; 2021-06-07)
DX: M62.81 Muscle weakness (generalized) (principal); F32.9 Major depressive disorder, single episode, unspecified; I10 Essential (primary) hypertension; E78.5 Hyperlipidemia, unspecified; E03.9 Hypothyroidism, unspecified; Z29.9 Encounter for prophylactic measures, unspecified
CPT/HCPCS: 36415; 70450-TC; 70551-TC; 80053; 80061; 81003; 82550; 82553; 83735; 84100; 84484; 85025; 87086; 87186; 93005; 93010; 93306-TC; 93880-TC; 96372; 97116-GP; 97161-GP; 99285-25; C9803; G0378; J1644; U0003; U0005